=== PATIENT | female | born 2000 | race Caucasian/White ===

== ENCOUNTER → 2022-10-10 17:10 | Outpatient (BNVA) | payer OTHER, SELFPAY | PROVIDERS: Visit Provider Registered Nurse Neonatal Intensive Care | DX: J02.9 Acute pharyngitis, unspecified (principal); J02.0 Streptococcal pharyngitis; B37.31 Acute candidiasis of vulva and vagina | CPT/HCPCS: 87880 ==

== ENCOUNTER 2024-07-30 15:52 | Emergency (ER) | payer OTHER, SELFPAY ==
[2024-07-30 16:13] VITALS: BP 122/70; PULSE 92; RESP 17; TEMP 36.9; O2SAT 100; BMI 45.5
--- NOTE | 2024-07-30 16:18 | USR_ITS ---
PROCEDURE INFORMATION: Exam: US , Transvaginal Exam date and time: 07/30/2024 4:40 PM Age: 24 years old Clinical indication: complicated by abdominal or pelvic pain; Left lower quadrant; First trimester (<14 weeks 0 days); Gestational age or lmp: 6 weeks 6 days; ; Additional info: Pain; R/O ectopic; Approx 8 weeks TECHNIQUE: Imaging protocol: Real-time transvaginal obstetrical ultrasound of the maternal pelvis with image documentation. Transvaginal imaging was used for better evaluation of the fetus, adnexa, and/or cervix. COMPARISON: US OB >= 14 weeks fetus [id number] 03/13/2018 9:55 AM FINDINGS: Gestation: Gestational sac is 1.3 cm. The gestational sac does not appear to be within the endometrial canal. The gestational sac appears to be within the uterine myometrium. heart rate: No cardiac activity identified at this time. BIOMETRY: Mean sac diameter: 1.3 cm. EGA (MSD) is 6 w 1 d MATERNAL: Cervix: Cervical length measures 2.9 cm. Other findings: [place] to rump length is measured at 8.7 mm. Normal maternal ovaries. US/US OB transvaginal [id number] IMPRESSION: Findings above related to suspicious but not diagnostic of failure given the findings above. Continued follow-up ultrasound and beta HCGs is recommended.
[2024-07-30 17:45] LABS: Basophils % 0.1 %; Eosinophils # 0.2 10^3/uL (0.0-0.8); Hematocrit 42.2 % (36-47); Lymphocytes # 1.9 10^3/uL (0.8-4.8); Lymphocytes % 26.8 %; Mean Corpuscular HGB Conc 32.5 g/dL (30-55); Mean Corpuscular Hemoglobin 28.8 pg (27-33); Mean Corpuscular Volume 88.7 fl (85-98); Mean Platelet Volume 9.5 fL (7.4-10.4); Monocytes # 0.7 10^3/uL (0.2-0.9); Monocytes % 9.4 %; Neutrophils # 4.18 10^3/uL (1.8-7.7); Neutrophils % 60.6 %; Nucleated Red Blood Cells % 0 %; Platelet Count 348 10^3/cmm (157-399); Red Blood Count 4.76 10^6/uL (3.85-5.65); Red Cell Distribution Width 12.1 % (12.1-15.1); White Blood Count 6.91 10^3/uL (3.29-11.43)
--- NOTE | 2024-07-30 17:54 | ED_ITS ---
HPI - 2 General: Chief complaint: Vaginal Bleeding Stated complaint: (dr de león) possible epitopic pregancy Time Seen by Provider: 07/30/24 17:30 Source: patient Mode of arrival: ambulatory Limitations: no limitations History of Present Illness: 24 yo female that is currently . She is unsure how far along she is but believes around 6 weeks. She states that today she has had vaginal bleeding along with lower abd cramping. Denies fever. Pt rates her pain a 4/10. Has had one previous . Associated symptoms: Reports abdominal pain; Deny headache(s), nausea or vomiting Related Data Previous Rx's Medication Instructions Recorded cetirizine 10 mg capsule (Zyrtec) 10 mg PO DAILY PRN allergy 07/01/24 symptoms 14 days #14 caps famotidine 40 mg tablet (Pepcid) 40 mg PO DAILY #14 tabs 07/01/24 Allergies Allergy/AdvReac Type Severity Reaction Status Date / Time No Known Allergies Allergy Verified 07/01/24 17:32 Review of Systems 2 Const: Denies: fever(s), chills, body aches or change in appetite ENMT: Denies: throat pain or dental pain Card: Denies: chest pain Resp: Denies: dyspnea GI: Reports: abdominal pain; Denies: nausea, vomiting or diarrhea : Reports: vaginal bleeding Musc: Denies: neck pain or back pain Skin/Breast: Denies: rash Neuro: Denies: headache(s) PFSH ED 2 PFSH: Social History Smoking and tobacco/nicotine status: never used tobacco/nicotine Physical Exam 2 Const: COMMON NORMALS: no acute distress, patient oriented x3 and healthy appearing HENMT: COMMON NORMALS: normocephalic and atraumatic HEAD & SCALP: n ormocephalic and atraumatic Neck/C-Spine: COMMON NORMALS: full ROM and supple Chest: COMMONS NORMALS: normal inspection of the chest Resp: COMMON NORMALS: normal respiratory effort Cardio: COMMON NORMALS: regular rate RATE: regular rate GI: COMMON NORMALS: Normal to inspection, nondistended, normoactive bowel sounds present, Soft to palpation, non-tender and no masses PALPATION: Yes Soft to palpation Extremity: COMMON NORMALS: normal to inspection and full ROM Neuro: COMMON NORMALS: patient oriented x3, moves all extremities and no focal motor deficits Psych: COMMON NORMALS: mental status grossly normal, Normal thought process present and cooperative THOUGHT PROCESS: Normal thought process present Skin: COMMON NORMALS: no rashes or lesions noted and no wounds GENERAL SKIN EXAM: no rashes or lesions noted Course 2 Vital Signs: Vital signs: Vital Signs Temperature 98.4 F 07/30/24 16:13 Pulse Rate 101 H 07/30/24 18:01 Respiratory Rate 17 07/30/24 16:13 Blood Pressure 148/103 07/30/24 18:01 Pulse Oximetry 99 07/30/24 18:01 Oxygen Delivery Me thod Room Air 07/30/24 18:01 MDM - OB/Uterine Contractions Medical Decision Making Patient presents here with likely miscarriage she is well-appearing here she has no signs of ectopic here she has follow-up with her OB on Friday she is follow- up as scheduled return to ER if worsening she understands agrees to plan. Medical Records I reviewed the patient's medical records. Lab Data I reviewed the patient's lab results. 07/30/24 17:37 07/30/24 17:37 Radiology Impressions Transvaginal US 07/30/24 16:18 IMPRESSION: Findings above related to suspicious but not diagnostic of failure given the findings above. Continued follow-up ultrasound and beta HCGs is recommended. Laboratory Results WBC 6.91 10^3/uL (3.29-11.43) 07/30/24 17:37 RBC 4.76 10^6/uL (3.85-5.65) 07/30/24 17:37 Hgb 13.70 g/dL (11.27-16.99) 07/30/24 17:37 Hct 42.2 % (36-47) 07/30/24 17:37 MCV 88.7 fl (85-98) 07/30/24 17:37 MCH 28.8 pg (27-33) 07/30/24 17:37 MCHC 32.5 g/dL (30-55) 07/30/24 17:37 RDW 12.1 % (12.1-15.1) 07/30/24 17:37 Plt Count 348 10^3/cmm (157-399) 07/30/24 17:37 MPV 9.5 fL (7.4-10.4) 07/30/24 17:37 Neut % (Auto) 60.6 % 07/30/24 17:37 Lymph % (Auto) 26.8 % 07/30/24 17:37 Grant % (Auto) 9.4 % 07/30/24 17:37 Eos % (Auto) 3.0 % 07/30/24 17:37 Baso % (Auto) 0.1 % 07/30/24 17:37 Neut # (Auto) 4.18 10^3/uL (1.8-7.7) 07/30/24 17:37 Lymph # (Auto) 1.9 10^3/uL (0.8-4.8) 07/30/24 17:37 Grant # (Auto) 0.7 10^3/uL (0.2-0.9) 07/30/24 17:37 Eos # (Auto) 0.2 10^3/uL (0.0-0.8) 07/30/24 17:37 Baso # (Auto) 0.0 10^3/uL (0.0-0.1) 07/30/24 17:37 Nucleated RBC % (auto) 0 % 07/30/24 17:37 Nucleated RBCs # 0.0 /100WBC 07/30/24 17:37 Sodium 136 mmol/L (136-145) 07/30/24 17:37 Potassium 3.7 mmol/L (3.5-5.1) 07/30/24 17:37 Chloride 100 mmol/L (98-107) 07/30/24 17:37 Carbon Dioxide 24 mmol/L (22-29) 07/30/24 17:37 Anion Gap 15.7 (5-19) 07/30/24 17:37 BUN 7 mg/dL (6-20) 07/30/24 17:37 Creatinine 0.6 mg/dL (0.5-0.9) 07/30/24 17:37 GFR Calculation 120.8 mL/min (90-130) 07/30/24 17:37 Glucose 79 mg/dL (65-115) 07/30/24 17:37 Calculated Osmolality 279 mOsm/kg (285-295) L 07/30/24 17:37 Calcium 9.1 mg/dL (8.5-10.5) 07/30/24 17:37 Total Bilirubin 0.5 mg/dL (0.15-1.2) 07/30/24 17:37 AST 17 U/L (0-32) 07/30/24 17:37 ALT 20 U/L (0-33) 07/30/24 17:37 Alkaline Phosphatase 57 U/L (35-105) 07/30/24 17:37 Total Protein 7.4 g/dL (6.6-8.7) 07/30/24 17:37 Albumin 4.2 g/dL (3.5-5.2) 07/30/24 17:37 Globulin 3.2 g/dL (1.3-4.6) 07/30/24 17:37 Ser , Semi-Qnt 8178.00 mIU/mL 07/30/24 17:37 Blood Type A Positive 07/30/24 17:37 Rho(D) Type Rh positive 07/30/24 17:37 Antibody Screen Negative 07/30/24 17:37 All radiology interpretation(s) finalized by discharge Discharge Plan Discharge Patient Disposition: Home Clinical Impression: Threatened miscarriage Condition: Stable Prescriptions: No Action Zyrtec 10 mg capsule 10 mg PO DAILY PRN (Reason: allergy symptoms) 14 Days Qty: 14 0RF famotidine [Pepcid] 40 mg tablet 40 mg PO DAILY Qty: 14 0RF Discharge Orders: Discharge ED (Routine); Ordered 07/30/24 Ordered By: Grupo Hammond Discharge Diet: Advance as tolerated Discharge Activity: Resume usual activity Patient Instructions: Threatened Miscarriage (ED) Coding Level of Care Code ED Diversity Specialist for Stephanie Owens
[2024-07-30 18:01] VITALS: BP 148/103; PULSE 101; O2SAT 99
[2024-07-30 18:12] LABS: Alanine Aminotransferase 20 U/L (0-33); Albumin Level 4.2 g/dL (3.5-5.2); Alkaline Phosphatase 57 U/L (35-105); Anion Gap 15.7 (5-19); Aspartate Amino Transferase 17 U/L (0-32); Blood Urea Nitrogen 7 mg/dL (6-20); Calcium 9.1 mg/dL (8.5-10.5); Carbon Dioxide 24 mmol/L (22-29); Chloride 100 mmol/L (98-107); Creatinine Clr Calc Pharmacy 175.1136; Globulin 3.2 g/dL (1.3-4.6); Glomerular Filtration Rate 120.8 mL/min (90-130); Glucose 79 mg/dL (65-115); Osmolality Calculated 279 mOsm/kg (285-295); Potassium 3.7 mmol/L (3.5-5.1); Sodium 136 mmol/L (136-145); Total Bilirubin 0.5 mg/dL (0.15-1.2); Total Protein 7.4 g/dL (6.6-8.7)
[2024-07-30 20:09] VITALS: BP 136/79; PULSE 76; O2SAT 99
== END 2024-07-30 20:10 | disposition home or self-care (01) ==
PROVIDERS: Physician Assistant; Emergency Provider Emergency Medicine
DX: O20.0 Threatened abortion (principal); Z3A.00 Weeks of gestation of pregnancy not specified
CPT/HCPCS: 36415; 76817; 80053; 84702; 85025; 86850; 86900; 99284

== ENCOUNTER 2024-08-02 08:31 | Outpatient (CLI) | payer OTHER, SELFPAY | END 2024-08-02 08:32 | disposition home or self-care (01) | LOC: LAB 08:33 | PROVIDERS: Visit Provider Family Medicine | DX: O26.859 Spotting complicating pregnancy, unspecified trimester (principal) | CPT/HCPCS: 84702 ==

== ENCOUNTER 2025-05-15 18:11 | Emergency (ER) | payer OTHER, SELFPAY ==
[2025-05-15 18:23] VITALS: BP 137/75; PULSE 78; TEMP 37; O2SAT 100
[2025-05-15] MEDS: tetracaine 0.5% Op Soln 4 mL Btl 1 DROP EYE-LEFT (18:39)
--- NOTE | 2025-05-15 18:41 | ED_ITS ---
HPI - Eye Problem General: Chief complaint: Eye Problems Stated complaint: LT Eye Swollen Time Seen by Provider: 05/15/25 18:18 Source: patient Mode of arrival: ambulatory Limitations: no limitations History of Present Illness: Patient is a 25-year-old female who presents the emergency department with left eye irritation and swelling that began about 2 hours prior to arrival. States that she was moving furniture and boxes prior to onset, does not recall something getting into her eye but states something might have. No visual changes, no pain with extraocular movements, no fever, no proptosis, no headache, no other symptoms reported at this time. chief complaint: eye redness and other (Eye swelling and irritation) Onset (ago): hour(s) Onset description: gradual Duration: constant Location: left eye Mechanism: other (Occurred while moving boxes and furniture) Associated symptoms: Denies fever(s), headache(s), nausea, neck pain or vomiting Related Data Previous Rx's ?Medication ?Instructions ?Recorded cetirizine 10 mg capsule (Zyrtec) 10 mg PO DAILY PRN a llergy 07/01/24 symptoms 14 days #14 caps famotidine 40 mg tablet (Pepcid) 40 mg PO DAILY #14 ta bs 07/01/24 [id number] 3.5 1 drp ophthalmic (eye) Q12H #5 mL 05/15/25 mg/mL-10,000 unit/mL-0.1% eye drops (Maxitrol) Allergies Allergy/AdvReac Type Severity Reaction Status Date / Time No Known Allergies Allergy Verified 05/15/25 18:26 Review of Systems General: Reports: 10 or more systems reviewed and unremarkable except in HPI and below Const: Denies: fever(s), chills or fatigue Eyes: Reports: eye discomfort and eye redness; Denies: change in vision, blurry vision, photophobia or eye discharge ENMT: Denies: throat pain, ear or mastoid pain or nasal discharge Card: Denies: chest pain, palpitations, swelling of feet/ankles or lightheadedness Resp: Denies: dyspnea, productive cough or wheezing GI: Denies: abdominal pain, nausea, vomiting, diarrhea or constipation : Denies: flank pain, difficulty voiding, dysuria or urinary frequency Musc: Denies: neck pain, back pain or joint pain Skin/Breast: Denies: rash Neuro: Denies: headache(s), numbness in extremities or weakness in extremities PFSH ED PFSH: Social History Smoking and tobacco/nicotine status: never used tobacco/nicotine Physical Exam Const: COMMON NORMALS: no acute distress and no limitations GENERAL APPEARANCE: cooperative, comfortable and well developed ORIENTATION/CONSCIOUSNESS: Yes awake HENMT: COMMON NORMALS: normocephalic, atraumatic and hearing grossly normal bilaterally HEAD & SCALP: normocephalic and atraumatic Eye: COMMON NORMALS: Equal, round and reactive pupils present and EOMs intact bilaterally PUPIL: Yes Equal, round and reactive pupils present OTHER: Conjunctival edema, diffuse conjunctival injection with watery discharge. No pain with extraocular movements. No periorbital swelling or redness. Fluorescein stain does not show any corneal abrasion. Neck/C-Spine: COMMON NORMALS: full ROM, supple and no JVD Resp: COMMON NORMALS: normal respiratory effort, No retractions, No use of accessory muscles and clear to auscultation bilaterally AUSCULTATION: clear to auscultation bilaterally Cardio: COMMON NORMALS: no JVD, regular rate, regular rhythm, No clicks present (Cardio), No murmurs present (Cardio) and No rub (Cardio) RATE: re gular rate RHYTHM: regular rhythm Extremity: COMMON NORMALS: normal to inspection, full ROM and capillary refill normal Skin: COMMON NORMALS: no rashes or lesions noted GENERAL SKIN EXAM: no rashes or lesions noted Course Vital Signs: Vital signs: Vital Signs Temperature 98.6 F 05/15/25 18:23 Pulse Rate 69 05/15/25 18:48 Respiratory Rate 17 05/15/25 18:48 Blood Pressure 125/90 05/15/25 18:48 Pulse Oximetry 96 05/15/25 18:48 Oxygen Delivery Me thod Room Air 05/15/25 18:23 MDM - Eye Problem Medical Decision Making This appears clinically significant for conjunctivitis, and due to the amount of conjunctival edema we will treat with Maxitrol and have the patient see primary care if she continues to have symptoms for possible ophthalmology referral. However she had no pain with extraocular movements, no periorbital findings, no visual changes, and no other emergent concerns and she is stable for discharge. No radiology studies performed this visit Discharge Plan Discharge Patient Disposition: Home Clinical Impression: Conjunctivitis Qualifiers: Conjunctivitis type: acute Acute conjunctivitis type: unspecified Laterality: left Qualified Code(s): H10.32 - Unspecified acute conjunctivitis, left eye Condition: Stable Prescriptions: New neomycin-polymyxin B-dexameth [Maxitrol] 3.5mg/mL-10,000 unit/mL-0.1 % drops,suspension 1 drp ophthalmic (eye) Q12H Qty: 5 0RF No Action Zyrtec 10 mg capsule 10 mg PO DAILY PRN (Reason: allergy symptoms) 14 Days Qty: 14 0RF famotidine [Pepcid] 40 mg tablet 40 mg PO DAILY Qty: 14 0RF Discharge Orders: Discharge ED (Routine); Ordered 05/15/25 Ordered By: Giorgio De La Cruz Patient Instructions: Patient Portal & Alexandro Instructions Activity Restrictions/Additional Instructions: Conjunctivitis Discharge Instructions Diagnosis: Left eye conjunctivitis, treated with Maxitrol (neomycin sulfate, polymyxin B sulfate, and dexamethasone ophthalmic ointment). Medication Instructions: - Apply a small amount (about ? inch) of Maxitrol ointment into the conjunctival sac of the affected eye up to three or four times daily, as prescribed.[1] https:/ /[employer]phria.nih.gov/dailymed/drugInfo.cfm?ivlaa=[id number] 5h8308 - To apply: Tilt head back, gently pull down the lower eyelid to form a pocket, place ointment in the pocket, and avoid touching the tube tip to the eye or any surface to prevent contamination.[1] https://[employer].Aphria.nih.gov/dailymed/drugInfo.cfm?ewyeb=1152l246-qq73-40h3-5ro5 -[id number] - Keep the tube tightly closed when not in use. Do not share the tube with others, as this may spread infection.[1] https://[employer]ria.[employer].gov/dailymed/drugInfo.cfm?ulgru=275 [id number] - Do not use more than the prescribed amount (not more than 8 g initially). Do not refill the prescription without further evaluation.[1] https ://[employer].gov/dailymed/drugInfo.cfm?pzjgf=3635i315-fz75-14x9-2lo3-54o1 049c9448 Precautions: - Vision may be temporarily blurred after application. Use caution when driving or operating machinery.[1] https://[employer].gov/dailyStyroPower/drugInfo.cfm?ribad=0872i799-mx88-96z4-3ap0 -66u5908n3947 - If pain, redness, or inflammation persists longer than 48 hours or worsens, discontinue use and seek medical attention.[1] https://[employer].Aphria.nih.gov/dailyStyroPower/drugInfo.cfm?sttuw=3988v859-ij85-46p4-4az5 -90l2339a5366 - If you experience itching, rash, swelling, or other signs of allergic reaction, stop using the medication and contact your healthcare provider immediately.[1] https://[employer].Aphria.nih.g ov/dailymed/drugInfo.cfm?bmhht=9691m740-[id number] - Prolonged use may increase the risk of secondary infections, including fungal infections. Report any persistent or worsening symptoms.[1] https://[employer].gov/dailyStyroPower/drugInfo.cfm?offfn=6163u709-za63-53w0-6hb0 -[id number] - Maxitrol is contraindicated in viral (e.g., herpes simplex, varicella, vaccinia), mycobacterial, or fungal ocular infections, and in patients with known hypersensitivity to any component.[1] https://[employer].Aphria.nih.gov/dailymed/drugInfo.cfm?setid=57 00q650-[id number] General Care and Infection Control: - Wash hands thoroughly before and after touching the eye or applying ointment. - Avoid touching or rubbing the affected eye. - Do not share towels, pillows, or personal items to prevent spread of infection.[2] https://[employer]/kera/article- lookup/doi/10.1093/kera/gqqw914 - Dispose of tissues or cotton used to wipe the eye immediately after use. Follow-Up: - Return for follow-up as directed, or sooner if symptoms worsen or new symptoms develop. - Prescription should not be refilled without re-examination, including slit lamp biomicroscopy if indicated.[1] https://[employer]ria.[employer].gov/dailymed/drugInfo.cfm?xvesi=9819z467-q [id number] Additional Information: - If , discuss with your provider, as caution is advised with topical corticosteroids.[1] h ttps://[employer]ed.[employer].gov/dailymed/drugInfo.cfm?ztuiv=9190t943-uy43-54s1-2ys4- 06y5293n3862 - Safety and effectiveness in pediatric patients have not been established.[1] https ://[employer]ria.[employer].gov/dailymed/drugInfo.cfm?sqrcn=3512p923-mq21-46c2-6zc8-76i4 [id number] When to Seek Immediate Care: - Severe eye pain, vision loss, marked swelling, or systemic symptoms (fever, malaise). - Signs of severe allergic reaction (difficulty breathing, swelling of face/lips/tongue). Contact Information: - For questions or concerns, contact your healthcare provider or ophthalmology clinic. References * MAXITROL https://[employer]ria.[employer].gov/dailymed/drugInfo.cfm?xvwjb=3311q404-uk61-35u6-7j [id number] . Food and Drug Administration. Updated date: 2023-09-05. * Guide to Utilization of the Microbiology Laboratory for Diagnosis of Infectious Diseases: 2023 Update by the Infectious Diseases Society of [place] (IDSA) and the [place] Society for Microbiology (ASM) https://[facility].[employer]/kera/article-lookup/doi/10.1093/kera/nbat405 . Landry DEVRIES, Jorge FERNANDEZ, Sid S, et al. Clinical Infectious Diseases : An Official Publication of the Infectious Diseases Society of [place]. 2023;:hgpj390. doi:10.1093/kera/mihq259. Print Language: Syriac Coding Level of Care Code ED Corporate Investigator for Stephanie Owens
[2025-05-15 18:48] VITALS: BP 125/90; PULSE 69; RESP 17; O2SAT 96
== END 2025-05-15 18:49 | disposition home or self-care (01) ==
PROVIDERS: Emergency Provider Physician Assistant
DX: H10.32 Unspecified acute conjunctivitis, left eye (principal)
CPT/HCPCS: 99283; J9999